=== PATIENT | male | born 1980 | race Caucasian/White ===

== ENCOUNTER 2019-04-26 20:38 | Emergency (ER) | payer MEDICARE, SELFPAY ==
[2019-04-26 21:09] LABS: #Basophils 0.1 thou/uL (0.0-0.2); #Eosinphils 0.3 thou/uL (0.0-0.7); #Monocytes 1.2 thou/uL (0.11-0.59); #Neutrophils 10.8 thou/uL (1.40-6.50); %Basophils 0.7 % (0.0-1.0); %Eosinophils 1.9 % (0.0-10.0); %Lymphocytes 19.5 % (21.0-51.0); %Monocytes 7.5 % (0.0-10.0); %Neutrophils 70.4 % (42.0-75.0); Hemoglobin 15.1 g/dL (14.0-18.0); Mean Corpuscular HGB CONC 33.3 g/dL (32.0-36.0); Mean Corpuscular Hemoglobin 30.1 pg (27.0-31.0); Mean Corpuscular Volume 90.5 fL (78.0-98.0); Mean Platelet Volume 6.1 fL (7.4-10.4); Platelet Count 519 thou/uL (130-400); RBC Distribution Width 12.7 % (11.5-14.5); Red Blood Cell (RBC) Count 5.02 mill/uL (4.70-6.10); White Blood Cell (WBC) Count 15.4 thou/uL (4.8-10.8)
[2019-04-26 21:28] LABS: Bilirubin Negative (Negative); Blood, Urine Trace (Negative); Glucose, Urine (Dipstick) Negative (Negative); Leukocyte Large (Negative); Nitrite Negative (Negative); Protein, Urine (Dipstick) Trace mg/dL (Neg-Trace); Urobilinogen 0.2 mg/dL (Less than 2)
[2019-04-26 21:29] LABS: ALT (SGPT) 19 U/L (8-55); AST (SGOT) 18 U/L (5-34); Acetaminophen Less than 6.0 mcg/mL (10.0-30.0); Albumin 4.4 g/dL (3.5-5.0); Alcohol Less than 10 mg/dL (Less than 10); Alkaline Phosphatase 102 U/L (40-150); Anion Gap 15 mmol/L (10-20); BUN (Urea Nitrogen) 20 mg/dL (8.9-20.6); Bilirubin, Total 0.5 mg/dL (0.2-1.2); Calc. Creatinine Clearance 0 mL/min (70-130); Calcium 10.6 mg/dL (7.8-10.44); Carbon Dioxide 28 mmol/L (22-29); Chloride 101 mmol/L (98-107); Estimated GFR-MDRD 84; Globulin 3.5 g/dL (2.4-3.5); Glucose 84 mg/dL (70-105); Protein, Total 7.9 g/dL (6.0-8.3); Salicylate Less than 8.0 mg/dL (15.0-30.0); Sodium 140 mmol/L (136-145)
[2019-04-26 21:36] LABS: Clarity Cloudy (Clear)
[2019-04-26 21:37] LABS: Squamous Epithelial 0-3 HPF (0-3); WBC/HPF Greater Than 50 HPF (0-3)
[2019-04-26 21:41] LABS: Bacteria/HPF 1+ HPF (None Seen)
[2019-04-26 21:42] LABS: Amphetamine Not Detected (NotDetected); Barbiturates Screen Not Detected (NotDetected); Benzodiazepine Screen Not Detected (NotDetected); Cocaine Metabolite Screen Not Detected (NotDetected); Medtox Control Line Valid? VALID (VALID); Medtox Reader # READER 4; Methadone Not Detected (NotDetected); Methamphetamine Not Detected (NotDetected); Opiate Screen Not Detected (NotDetected); Oxycodone Screen Not Detected (NotDetected); Phencyclidine (PCP) Not Detected (NotDetected); THC/Cannabinoid Screen Not Detected (NotDetected); Tricyclic Screen Not Detected (NotDetected)
[2019-04-26] MEDS ORDERED: Azithromycin 500 MG VIAL ONE (22:08)
[2019-04-26] MEDS ORDERED: cefTRIAXone\\ROCEPHIN 250 MG VIAL ONE (22:08)
[2019-04-26] MEDS ORDERED: Azithromycin 250 MG TAB ONE (22:09)
[2019-04-26] MEDS ORDERED: Lidocaine 1% PF 5 ML VIAL ONE (22:09)
[2019-04-27] MEDS ORDERED: risperiDONE 1 MG TAB ONE (09:20)
[2019-04-27] MEDS ORDERED: risperiDONE 3 MG TAB PO SCH (21:00)
[2019-04-27] MEDS ORDERED: traZODone HCl 50 MG TAB PO SCH (21:00)
[2019-04-27] MEDS ORDERED: lamoTRIgine 100 MG TAB PO SCH (21:00)
[2019-04-27 21:30] LABS: #Basophils 0.1 thou/uL (0.0-0.2); #Eosinphils 0.3 thou/uL (0.0-0.7); #Monocytes 0.7 thou/uL (0.11-0.59); #Neutrophils 6.3 thou/uL (1.40-6.50); %Basophils 0.7 % (0.0-1.0); %Eosinophils 2.9 % (0.0-10.0); %Lymphocytes 21.5 % (21.0-51.0); %Monocytes 7.3 % (0.0-10.0); %Neutrophils 67.7 % (42.0-75.0); Hemoglobin 13.9 g/dL (14.0-18.0); Mean Corpuscular Hemoglobin 30.9 pg (27.0-31.0); Mean Corpuscular Volume 90.8 fL (78.0-98.0); Mean Platelet Volume 6.2 fL (7.4-10.4); Platelet Count 409 thou/uL (130-400); RBC Distribution Width 12.6 % (11.5-14.5); White Blood Cell (WBC) Count 9.3 thou/uL (4.8-10.8)
[2019-04-28 01:07] LABS: Chlam.trachomatis by PCR,Urine Not Detected (NotDetected)
[2019-04-28] MEDS ORDERED: Citalopram 20 MG TAB PO SCH (09:00)
== END 2019-04-28 00:15 ==
LOC: ERS 20:38
DX: F29 Unspecified psychosis not due to a substance or known physiological condition (principal); R45.851 Suicidal ideations; N34.1 Nonspecific urethritis; F25.9 Schizoaffective disorder, unspecified; Z79.899 Other long term (current) drug therapy
CPT/HCPCS: 36415; 80053; 80306; 80307; 81003; 81015; 85025; 87086; 87491; 87591; 96372; 99285; J0456; J0696; J2001